=== PATIENT | female | born 1985 | race Two or more races ===

== ENCOUNTER 2018-01-14 09:11 | Emergency (ER) | payer BC ==
--- NOTE | 2018-01-14 11:11 | EDM.PDOC ---
ED HPI GENERAL MEDICAL PROBLEM - General Chief Complaint: Chest Pain Stated Complaint: CHEST PAIN Time Seen by Provider: 01/14/18 09:23 Source of Information: Reports: Patient, RN Notes Reviewed - History of Present Illness INITIAL COMMENTS - FREE TEXT/NARRATIVE: 32-year-old female comes in with symptoms of discomfort left chest that started last evening about 12 hours ago and has continued intermittent again this morning. She states that she does feel somewhat dizzy in a very nonspecific way. She does not feel short of breath. She's not been coughing and there has not been any fever or chills. She is not known to be diabetic. She has no personal history for hypertension or heart disease. She does smoke. No unusual injury that she is aware of. The pain is not worse with deep breathing. 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 History: cervical cancer cells - surgically removed Social & Family History - Tobacco Use Smoking Status *Q: Current Every Day Smoker Years of Tobacco use: 15 Packs/Tins Daily: 0.5 ED ROS GENERAL - Review of Systems Review Of Systems: See Below Constitutional: Denies: Fever, Chills, Diaphoresis HEENT: Denies: Throat Pain Respiratory: Denies: Shortness of Breath, Wheezing, Pleuritic Chest Pain Cardiovascular: Reports: Chest Pain, Lightheadedness GI/Abdominal: Denies: Abdominal Pain, Nausea, Vomiting Musculoskeletal: Denies: Neck Pain, Shoulder Pain, Arm Pain, Back Pain Skin: Reports: No Symptoms Neurological: Reports: Dizziness. Denies: Headache, Numbness, Tingling, Trouble Speaking, Weakness ED EXAM, GENERAL - Physical Exam Exam: See Below General Appearance: Alert, No Apparent Distress Eye Exam: Bilateral Eye: PERRL Throat/Mouth: Normal Inspection, Normal Oropharynx Head: Atraumatic. No: Facial Swelling Neck: Supple, Full Range of Motion Respiratory/Chest: No Respiratory Distress, Lungs Clear, Normal Breath Sounds, Chest Non-Tender Cardiovascular: Regular Rate, Rhythm GI/Abdominal: Soft, Non-Tender Extremities: Normal Inspection, Normal Range of Motion. No: Pedal Edema, Leg Pain, Increased Warmth, Redness Neurological: Alert, Oriented, No Motor/Sensory Deficits Skin Exam: Warm, Dry, Normal Color EKG INTERPRETATION EKG Date: 01/14/18 Rhythm: NSR [place]: Normal P-Wave: Present QRS: Normal ST-T: Normal Course - Vital Signs Last Recorded V/S: Last Vital Signs Temp 98.6 F 01/14/18 09:20 Pulse 72 01/14/18 09:20 Resp 28 H 01/14/18 09:20 BP 129/71 01/14/18 09:20 Pulse Ox 96 01/14/18 09:20 - Orders/Labs/Meds Orders: Active Orders 24 hr Category Date Time Status EKG 12 Lead [EKG Documentation Completion] [RC] STAT Care 01/14/18 09:40 Active Chest 1V Frontal [CR] Stat Exams 01/14/18 10:42 Taken Labs: Laboratory Tests 01/14/18 01/14/18 01/14/18 Range/Units 09:55 09:55 09:55 WBC 8.87 (3.98-10.04) K/mm3 RBC 4.71 (3.98-5.22) M/mm3 Hgb 13.9 (11.2-15.7) gm/L Hct 41.2 (34.1-44.9) % MCV 87.5 (79.4-94.8) fl MCH 29.5 (25.6-32.2) pg MCHC 33.7 (32.2-35.5) g/dl RDW Std Deviation 40.9 (36.4-46.3) fL Plt Count 407 H (182-369) K/mm3 MPV 9.3 L (9.4-12.3) fl Neut % (Auto) 58.5 (34.0-71.1) % Lymph % (Auto) 33.4 (19.3-51.7) % [place] % (Auto) 5.7 (4.7-12.5) % Eos % (Auto) 1.9 (0.7-5.8) Baso % (Auto) 0.3 (0.1-1.2) % Neut # (Auto) 5.18 (1.56-6.13) K/mm3 Lymph # (Auto) 2.96 (1.18-3.74) K/mm3 [place] # (Auto) 0.51 H (0.24-0.36) K/mm3 Eos # (Auto) 0.17 (0.04-0.36) K/mm3 Baso # (Auto) 0.03 (0.01-0.08) K/mm3 Sodium 140 (136-145) mEq/L Potassium 3.8 (3.5-5.1) mEq/L Chloride 104 (98-107) mEq/L Carbon Dioxide 25 (21-32) mEq/L Anion Gap 14.8 (5-15) BUN 13 (7-18) mg/dL Creatinine 0.8 (0.55-1.02) mg/dL Est Cr Clr Drug Dosing 91.68 mL/min Estimated GFR (MDRD) > 60 (>60) mL/min BUN/Creatinine Ratio 16.3 (14-18) Glucose 130 H (74-106) mg/dL Calcium 8.8 (8.5-10.1) mg/dL Total Bilirubin 0.8 (0.2-1.0) mg/dL AST 12 L (15-37) U/L ALT 22 (14-59) U/L Alkaline Phosphatase 67 (46-116) U/L Troponin I < 0.017 (0.00-0.056) ng/mL Total Protein 7.3 (6.4-8.2) g/dl Albumin 3.6 (3.4-5.0) g/dl Globulin 3.7 gm/dL Albumin/Globulin Ratio 1.0 (1-2) HCG, Qual Negative (NEGATIVE) Departure - Departure Time of Disposition: 11:08 Disposition: Home, Self-Care 01 Condition: Fair Clinical Impression: Atypical chest pain, Dizziness Referrals: PCP,None [Primary Care Provider] - Forms: ED Department Discharge Additional Instructions: Echocardiogram will be scheduled at time of your departure today. Drink plenty of water to maintain hydration. Try eating a good healthy diet with plenty of fruit and vegetables, avoid flour sugar and carb foods as much as you can, try get going with a good regular exercise program, try stop smoking. Follow-up with your regular medical provider next week or echocardiogram results, complete physical, cholesterol check and help with implementation of the above plan. Return to ED as needed if symptoms worsening in any way. - My Orders Last 24 Hours: My Active Orders 01/14/18 09:40 EKG 12 Lead [EKG Documentation Completion] [RC] STAT 01/14/18 10:42 Chest 1V Frontal [CR] Stat - Assessment/Plan Last 24 Hours: My Active Orders 01/14/18 09:40 EKG 12 Lead [EKG Documentation Completion] [RC] STAT 01/14/18 10:42 Chest 1V Frontal [CR] Stat
[2018-01-14 13:23] VITALS: BP 113/75
--- NOTE | 2018-01-17 09:15 | CR ---
Chest: Portable view of the chest was obtained. Comparison: Prior chest x-ray of 12/13/14. Heart size is prominent but accentuated from portable technique. Upper mediastinum is normal. Lungs are clear without acute parenchymal change. Bony structures are grossly intact. Impression: 1. Nothing acute is seen on portable chest x-ray. Diagnostic code #1
== END 2018-01-14 11:30 | disposition home or self-care (01) ==
LOC: JD.ED 09:11
DX: R07.89 Other chest pain (principal); R42 Dizziness and giddiness; F17.210 Nicotine dependence, cigarettes, uncomplicated
CPT/HCPCS: 36415; 71045; 80053; 84484; 84703; 85025; 93005; 93010; 99284-25; 99285-25